=== PATIENT | male | born 1955 | race Caucasian/White ===

== ENCOUNTER 2018-09-21 13:31 | Emergency (ER) | payer OTHER ==
[~2018-09-21] VITALS: Ht 172.7 cm; Wt 79.8 kg
--- NOTE | 2018-09-21 13:48 | NUR ---
PT WALKED INTO EMERGENCY ROOM FOR LEFT SHOULLDER PAIN PT HAS A HISTORY OF SHOULDER INJURY 8 MONTHS AGO. PT ALERT WITH ORIENTATION X 4.
[2018-09-21 14:06] VITALS: BP 144/67
== END 2018-09-21 14:07 | disposition home or self-care (01) ==
LOC: ER 13:34
DX: M25.512 Pain in left shoulder (principal)
CPT/HCPCS: A4606